=== PATIENT | male | born 1970 | race Two or more races ===

== ENCOUNTER 2024-11-09 15:44 | Outpatient (CLI) | payer OTHER | END 2024-11-09 15:49 | disposition home or self-care (01) | LOC: RAD 15:44 | PROVIDERS: ATTEND Orthopaedic Surgery | DX: M76.821 Posterior tibial tendinitis, right leg (principal); M76.822 Posterior tibial tendinitis, left leg; M25.571 Pain in right ankle and joints of right foot; M25.572 Pain in left ankle and joints of left foot ==